=== PATIENT | male | born 2000 | race Caucasian/White ===

== ENCOUNTER 2021-11-30 22:28 | Inpatient (IN) | payer BC ==
[2021-11-30 22:48] LABS: Glucose,Whole Blood 293 mg/dL (70-110)
[2021-12-01] MEDS ORDERED: ONDANSETRON 4 MG/2 ML VIAL ONE (00:55)
[2021-12-01 01:58] LABS: ALT 23 U/L (4-49); AST 28 U/L (17-59); African American GFR (CKD) >90 (>60 ml/min/1.73 sqM); Albumin 4.5 g/dL (3.5-5.0); Alkaline Phosphatase 124 U/L (38-126); Amylase 33 U/L (30-110); Anion Gap 20 mmol/L; Blood Urea Nitrogen 14 mg/dL (9-20); Calcium 9.5 mg/dL (8.4-10.2); Carbon Dioxide 14 mmol/L (22-30); Chloride 98 mmol/L (98-107); Glucose 315 mg/dL (74-99); Lipase 25 U/L (23-300); Non-African American GFR(CKD) >90 (>60 ml/min/1.73 sqM); Potassium 4.2 mmol/L (3.5-5.1); Sodium 132 mmol/L (137-145); Total Bilirubin 0.7 mg/dL (0.2-1.3); Total Protein 7.5 g/dL (6.3-8.2)
[2021-12-01 02:12] LABS: Glucose,Whole Blood 238 mg/dL (70-110)
[2021-12-01] MEDS ORDERED: NALOXONE 0.4 MG/ML 1 ML VIAL IV PRN (02:45)
[2021-12-01] MEDS ORDERED: DEXTROSE 50% SYRINGE 50 ML IVP PRN ×2 (02:51)
[2021-12-01 02:57] LABS: Appearance,Urine Clear (Clear); Bilirubin,Urine Negative (Negative); Blood,Urine Negative (Negative); Color,Urine Yellow; Glucose,Urine (UA) 4+ (Negative); Leukocyte Esterase,Urine Negative (Negative); Mucus,Urine Rare /hpf; Nitrite,Urine Negative (Negative); Protein,Urine 1+ (Negative); RBC,Urine 1 /hpf (0-5); Specific Gravity,Urine 1.027 (1.001-1.035); Urobilinogen,Urine <2.0 mg/dL (<2.0); WBC,Urine 1 /hpf (0-5)
[2021-12-01 02:59] LABS: Ketones,Urine 4+ (Negative)
[2021-12-01 03:00] LABS: Basophils # (A) 0.1 k/uL (0-0.2); Basophils % (A) 1 %; Eosinophils % (A) 0 %; HCT 46.1 % (39.0-53.0); HGB 15.7 gm/dL (13.0-17.5); Lymphocytes # (A) 0.5 k/uL (1.0-4.8); Lymphocytes % (A) 8 %; MCHC 34.2 g/dL (31.0-37.0); MCV 87.8 fL (80.0-100.0); Mean Platelet Volume 7.9; Monocytes # (A) 0.5 k/uL (0-1.0); Monocytes % (A) 8 %; Neutrophils # (A) 5.3 k/uL (1.3-7.7); Neutrophils % (A) 81 %; Platelet Count 245 k/uL (150-450); RBC 5.25 m/uL (4.30-5.90); WBC 6.6 k/uL (4.0-11.0)
[2021-12-01] MEDS: SODIUM CHLORIDE 0.9% 1,000 ML IV SCH ×4 (03:07→20:18)
[2021-12-01 03:13] LABS: VBG PH 7.5 (7.31-7.41)
[2021-12-01 03:13] LABS: Glucose,Whole Blood 204 mg/dL (70-110)
[2021-12-01] MEDS: INSULIN ASPART (NovoLOG) 100 UNIT/ML VIAL SQ SCH ×5 (03:23→20:18)
--- NOTE | 2021-12-01 03:27 | P.HPIM ---
History of Present Illness H&P Date: 12/01/21 The patient is a 20-year-old male with a PMH of type I DM on insulin pump who presents to the emergency room with complaints of nausea, vomiting, abdominal pain. The patient reports that his symptoms started earlier today, likely as a result of his insulin pump battery running out. The patient reports that he noticed the battery had run out after arrival at the emergency room, and that he had simply forgotten to charge it. Reports that this has happened in the past but that his symptoms were never severe. Reports feeling better at the time of interview. Reports mild diffuse abdominal pain with multiple episodes of nonbloody nonbilious emesis over the past 4-5 hours. Denies recent chest discomfort, shortness of breath, fever, chills, cough. Laboratory evaluation was remarkable for CO2 14, anion gap 20, and glucose 315. Review of systems: Pertinent positives and negatives as discussed in HPI, a complete review of systems was performed and all other systems are negative. Physical examination: General: non toxic, no distress, appears at stated age, normal weight Derm: no unusual rashes/lesions, warm Head: atraumatic, normocephalic, symmetric Eyes: EOMI, no lid lag, anicteric sclera, pupils equal round reactive to light ENT: Nose and ears atraumatic Neck: No cervical lymphadenopathy, trachea midline, supple Mouth: no lip lesion, mucus membranes dry Cardiovascular: S1S2 reg, no murmur, positive dorsalis pedis pulse bilateral, no edema Lungs: CTA bilateral, no rhonchi, no rales, no accessory muscle use Abdominal: soft, nontender to palpation, no guarding Ext: muscle strength 5 out of 5 in all 4 extremities grossly, no gross muscle atrophy, no contractures, Neuro: CN II-XI grossly intact, no gross focal neuro deficits Psych: Alert, oriented, appropriate affect Assessment/plan Mild Diabetic ketoacidosis -Patient responded very well to subcu insulin with blood glucose 204 at time of interview -Patient reports that his basal insulin rate is 3 units an hour -Continue with subcu insulin and IV fluids -Discontinue patient's insulin pump at this time -Monitor BMP every 2 hourly -Nothing by mouth for now DVT prophylaxis -Heparin subq The patient is admitted with an anticipated greater than 2 midnight stay for evaluation of DKA CODE STATUS: Full Code Discussed with: Patient Anticipated discharge place: Home Past Medical History Past Medical History: No Reported History, Diabetes Mellitus History of Any Multi-Drug Resistant Organisms: None Reported Past Surgical History: No Surgical Hx Reported Past Psychological History: No Psychological Hx Reported Smoking Status: Never smoker Past Alcohol Use History: None Reported Past Drug Use History: None Reported - Past Family History Mother Family Medical History: Cancer Medications and Allergies Allergies Allergy/AdvReac Type Severity Reaction Status Date / Time latex Allergy Rash/Hives Verified 11/30/21 22:40 Physical Exam Vitals: Vital Signs Temp Pulse Resp BP Pulse Ox 11/30/21 22:41 98.8 F 120 H 22 111/66 98 Intake and Output 11/30/21 11/30/21 12/01/21 14:59 22:59 06:59 Other: Weight 93.894 kg Results CBC & Chem 7: 12/01/21 00:33 11/30/21 23:51 Labs: Abnormal Lab Results - Last 24 Hours (Table) 11/30/21 11/30/21 12/01/21 Range/Units 22:46 23:51 00:33 Lymphocytes # 0.5 L (1.0-4.8) k/uL VBG pH (7.31-7.41) VBG pCO2 (37-51) mmHg VBG HCO3 (24-28) mmol/L Sodium 132 L (137-145) mmol/L Carbon Dioxide 14 L (22-30) mmol/L Glucose 315 H (74-99) mg/dL POC Glucose (mg/dL) 293 H (70-110) mg/dL Urine Protein (Negative) Urine Glucose (UA) (Negative) Urine Ketones (Negative) Urine Mucus (None) /hpf 12/01/21 12/01/21 12/01/21 Range/Units 00:33 00:33 02:10 Lymphocytes # (1.0-4.8) k/uL VBG pH 7.50 H (7.31-7.41) VBG pCO2 27 L (37-51) mmHg VBG HCO3 21 L (24-28) mmol/L Sodium (137-145) mmol/L Carbon Dioxide (22-30) mmol/L Glucose (74-99) mg/dL POC Glucose (mg/dL) 238 H (70-110) mg/dL Urine Protein 1+ H (Negative) Urine Glucose (UA) 4+ H (Negative) Urine Ketones 4+ H (Negative) Urine Mucus Rare H (None) /hpf 12/01/21 Range/Units 03:11 Lymphocytes # (1.0-4.8) k/uL VBG pH (7.31-7.41) VBG pCO2 (37-51) mmHg VBG HCO3 (24-28) mmol/L Sodium (137-145) mmol/L Carbon Dioxide (22-30) mmol/L Glucose (74-99) mg/dL POC Glucose (mg/dL) 204 H (70-110) mg/dL Urine Protein (Negative) Urine Glucose (UA) (Negative) Urine Ketones (Negative) Urine Mucus (None) /hpf
[2021-12-01] MEDS ORDERED: INSULIN DETEMIR (LEVEMIR) 100 UNIT/ML SYR SQ SCH (03:30)
[2021-12-01 03:57] LABS: Phosphorus 1.6 mg/dL (2.5-4.5)
--- NOTE | 2021-12-01 05:01 | XR ---
EXAM: XR Chest, 1 View CLINICAL HISTORY: cough TECHNIQUE: Frontal view of the chest. COMPARISON: No relevant prior studies available. FINDINGS: Lungs: No consolidation or mass. Pleural space: No acute findings Heart: No cardiomegaly. Bones/joints: No acute findings. IMPRESSION: No acute cardiopulmonary process.
[2021-12-01 05:18] LABS: Glucose,Whole Blood 236 mg/dL (70-110)
[2021-12-01 05:37] LABS: African American GFR (CKD) >90 (>60 ml/min/1.73 sqM); Anion Gap 14 mmol/L; Blood Urea Nitrogen 13 mg/dL (9-20); Calcium 8.2 mg/dL (8.4-10.2); Carbon Dioxide 17 mmol/L (22-30); Chloride 100 mmol/L (98-107); Glucose 217 mg/dL (74-99); Non-African American GFR(CKD) >90 (>60 ml/min/1.73 sqM); Sodium 131 mmol/L (137-145)
[2021-12-01] MEDS: ACETAMINOPHEN TAB 325 MG TAB PO PRN ×3 (06:24→21:59)
[2021-12-01] MEDS: ONDANSETRON 4 MG/2 ML VIAL IVP PRN ×3 (06:26→22:11)
[2021-12-01 07:00] LABS: Glucose,Whole Blood 281 mg/dL (70-110)
[2021-12-01] MEDS: HEPARIN SODIUM,PORCINE/PF 5,000 UNIT/0.5 ML SYRINGE SQ SCH ×3 (08:59→23:08)
[2021-12-01 09:08] LABS: Glucose,Whole Blood 350 mg/dL (70-110)
[2021-12-01 14:06] LABS: Glucose,Whole Blood 297 mg/dL (70-110)
--- NOTE | 2021-12-01 16:36 | P.EN ---
Patient seen and examined. Agree with history and physical assessment and plan. Patient is a 20-year-old male with past medical history of type 1 diabetes mellitus on insulin pump which malfunctioned. He presented to the hospital with DKA. Currently on evaluation patient states improvement of overall symptoms of nausea vomiting and abdominal pain. He is currently on subcutaneous insulin. -Patient's CO2 did improve from 14-17. Stat BMP has been ordered to monitor closure anion gap. Continue with IV fluids Continue with current insulin and titrate accordingly
[2021-12-01 16:51] LABS: Glucose,Whole Blood 255 mg/dL (70-110)
[2021-12-01 17:16] LABS: African American GFR (CKD) >90 (>60 ml/min/1.73 sqM); Anion Gap 12 mmol/L; Blood Urea Nitrogen 13 mg/dL (9-20); Calcium 8.1 mg/dL (8.4-10.2); Carbon Dioxide 21 mmol/L (22-30); Chloride 98 mmol/L (98-107); Glucose 262 mg/dL (74-99); Magnesium 1.9 mg/dL (1.6-2.3); Non-African American GFR(CKD) >90 (>60 ml/min/1.73 sqM); Potassium 3.9 mmol/L (3.5-5.1); Sodium 131 mmol/L (137-145)
[2021-12-01 19:52] LABS: Glucose,Whole Blood 281 mg/dL (70-110)
[2021-12-01] MEDS: INSULIN DETEMIR (LEVEMIR) 100 UNIT/ML SYR SQ SCH (20:17)
[2021-12-02 02:07] LABS: Glucose,Whole Blood 254 mg/dL (70-110)
[2021-12-02] MEDS: INSULIN ASPART (NovoLOG) 100 UNIT/ML VIAL SQ SCH ×7 (02:08→20:44)
[2021-12-02 05:32] LABS: Magnesium 1.9 mg/dL (1.6-2.3)
[2021-12-02] MEDS: SODIUM CHLORIDE 0.9% 1,000 ML IV SCH (05:48)
[2021-12-02] MEDS: ONDANSETRON 4 MG/2 ML VIAL IVP PRN (05:49)
[2021-12-02 06:28] LABS: Glucose,Whole Blood 215 mg/dL (70-110)
[2021-12-02] MEDS: ACETAMINOPHEN TAB 325 MG TAB PO PRN ×3 (06:40→19:28)
[2021-12-02] MEDS: HEPARIN SODIUM,PORCINE/PF 5,000 UNIT/0.5 ML SYRINGE SQ SCH ×3 (08:47→23:46)
[2021-12-02 09:19] LABS: Glucose,Whole Blood 273 mg/dL (70-110)
[2021-12-02] MEDS ORDERED: INSULIN ASPART (NovoLOG) 100 UNIT/ML VIAL SQ PRN (11:07)
[2021-12-02] MEDS ORDERED: INSPUCOR MISCELLANE PRN (11:07)
[2021-12-02 11:53] LABS: Glucose,Whole Blood 189 mg/dL (70-110)
[2021-12-02] MEDS ORDERED: IOPAMIDOL CONTRAST (ORAL USE) VIAL PO PRN (15:52)
--- NOTE | 2021-12-02 15:57 | P.PN ---
Progress Note - Text Progress Note Date: 12/02/21 Hospital course: The patient is a 20-year-old male with a PMH of type I DM on insulin pump who p resents to the emergency room with complaints of nausea, vomiting, abdominal pain. The patient reports that his symptoms started earlier today, likely as a result of his insulin pump battery running out. The patient reports that he noticed the battery had run out after arrival at the emergency room, and that he had simply forgotten to charge it. Reports that this has happened in the past but that his symptoms were never severe. Reports feeling better at the time of interview. Reports mild diffuse abdominal pain with multiple episodes of nonbloody nonbilious emesis over the past 4-5 hours. Denies recent chest discomfort, shortness of breath, fever, chills, cough. Laboratory evaluation was remarkable for CO2 14, anion gap 20, and glucose 315. December 02: I assumed care of the patient from [facility] today. Patient is feeling better. Had spiked a fever. Had a slight cough. Come in. Feeling better. No congestion. No respiratory symptoms. No urinary symptoms. Patient's comfort also came in and patient be started on insulin pump. Patient smoked mother is also present. Patient was diagnosed to be diabetic at age of 3 and has adequate insulin pump last 8 years. Normally his Accu-Cheks runs in about 200s. 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 I discussed at length with patient his mother and his girlfriend diabetic care and diet. We have no diabetic liaison in the hospital. Mother is a rather discontent about improper diabetic food being provided the hospital. Dietitian was consulted for the same. Infection workup has been ordered including checks to x-ray urine culture, blood culture. Active Medications Acetaminophen (Acetaminophen Tab 325 Mg Tab) 650 mg PO Q6HR PRN PRN Reason: Mild Pain or Fever > 100.5 Last Admin: 12/02/21 13:46 Dose: 650 mg Dextrose/Water (Dextrose 50% Syringe 50 Ml) 25 ml IVP PER PROTOCOL PRN; Protocol PRN Reason: Hypoglycemia Dextrose/Water (Dextrose 50% Syringe 50 Ml) 50 ml IVP PER PROTOCOL PRN; Protocol PRN Reason: Hypoglycemia Heparin Sodium (Porcine) (Heparin Sodium,Porcine/Pf 5,000 Unit/0.5 Ml Syringe) 5,000 unit SQ Q8HR MANUEL Last Admin: 12/02/21 08:47 Dose: Not Given Insulin Aspart (Insulin Aspart (Novolog) 100 Unit/Ml Vial) 0 unit SQ Q6H [facility]; Protocol Last Admin: 12/02/21 09:35 Dose: 9 unit Insulin Aspart (Insulin Aspart (Novolog) 100 Unit/Ml Vial) 5 unit SQ AC-TID [facility] Last Admin: 12/02/21 06:40 Dose: 5 unit Insulin Aspart (Insulin Aspart (Novolog) 100 Unit/Ml Vial) 0 unit SQ DAILY PRN PRN Reason: Insulin Pump Replacement Insulin Detemir (Insulin Detemir (Levemir) 100 Unit/Ml Syr) 28 unit SQ HS [facility] Last Admin: 12/01/21 20:17 Dose: 28 unit Miscellaneous Information (Insulin Pump Correction Bolus 1 Unit Misc) 0 unit MISCELLANE ACHS PRN; Protocol PRN Reason: Blood Sugar - High Naloxone HCl (Naloxone 0.4 Mg/Ml 1 Ml Vial) 0.2 mg IV Q2M PRN PRN Reason: Opioid Reversal Ondansetron HCl (Ondansetron 4 Mg/2 Ml Vial) 4 mg IVP Q8HR PRN PRN Reason: Nausea And Vomiting Last Admin: 12/02/21 05:49 Dose: 4 mg On examination: VITAL SIGNS: [102.3, 107, 17, 133/72, 99% room air] GENERAL APPEARANCE: Average build. Lying in bed, not in distress. HEENT: Normal external appearance of nose and ear. Oral cavity normal EYES: Pupils equal. Conjunctiva normal. NECK: JVD not raised. Mass not palpable. RESPIRATORY: Respiratory effort normal. Lungs clear to auscultation. CARDIOVASCULAR: First and second sounds normal. No edema. ABDOMEN: Soft. Liver and spleen not palpable. No tenderness. No mass palpable. PSYCHIATRY: Alert and oriented x3. Mood and affect normal. INVESTIGATIONS, reviewed in the clinical context: Assessment and plan: -Sepsis, source unknown. IV fluids. Hold antibiotics. No source of infection on. Chest x-ray PA lateral. Urine culture. Blood culture. Computed tomography scan abdomen and pelvis with and without contrast. -Mild Diabetic ketoacidosis: Improved Patient was being managed with long-acting insulin and short-acting insulin. We'll start the patient back on insulin pump. Diabetic care was discussed at length with the patient, his mother, his girlfriend. Questions answered. Patient be started back on insulin pump. Labs have been requested. Infection workup in place. Total spent about 45 minutes with over 30 minutes of discussion. Dietitian and ID consult. -
[2021-12-02 16:14] LABS: Glucose,Whole Blood 208 mg/dL (70-110)
[2021-12-02 16:31] LABS: HCT 41.6 % (39.0-53.0); MCH 29.5 pg (25.0-35.0); MCHC 33.6 g/dL (31.0-37.0); MCV 87.7 fL (80.0-100.0); Mean Platelet Volume 7.8; Platelet Count 146 k/uL (150-450); RBC 4.74 m/uL (4.30-5.90); WBC 4.1 k/uL (4.0-11.0)
[2021-12-02 16:42] LABS: ALT 23 U/L (4-49); AST 37 U/L (17-59); African American GFR (CKD) >90 (>60 ml/min/1.73 sqM); Albumin 3.7 g/dL (3.5-5.0); Alkaline Phosphatase 88 U/L (38-126); Anion Gap 13 mmol/L; Blood Urea Nitrogen 9 mg/dL (9-20); Calcium 8.2 mg/dL (8.4-10.2); Carbon Dioxide 20 mmol/L (22-30); Chloride 101 mmol/L (98-107); Glucose 213 mg/dL (74-99); Non-African American GFR(CKD) >90 (>60 ml/min/1.73 sqM); Potassium 3.9 mmol/L (3.5-5.1); Sodium 134 mmol/L (137-145); Total Bilirubin 0.9 mg/dL (0.2-1.3); Total Protein 6.4 g/dL (6.3-8.2)
[2021-12-02 16:46] LABS: Appearance,Urine Clear (Clear); Bilirubin,Urine Negative (Negative); Blood,Urine Negative (Negative); Color,Urine Light Yellow; Glucose,Urine (UA) 4+ (Negative); Ketones,Urine 1+ (Negative); Leukocyte Esterase,Urine Negative (Negative); Nitrite,Urine Negative (Negative); Protein,Urine Trace (Negative); Specific Gravity,Urine 1.012 (1.001-1.035); Urobilinogen,Urine <2.0 mg/dL (<2.0)
--- NOTE | 2021-12-02 17:16 | XR ---
EXAMINATION TYPE: XR chest 2V DATE OF EXAM: 12/02/2021 COMPARISON: 12/01/2021 HISTORY: Productive cough TECHNIQUE: Frontal and lateral views of the chest are obtained. FINDINGS: There is no focal air space opacity, pleural effusion, or pneumothorax seen. The cardiac silhouette size is within normal limits. The osseous structures are intact. IMPRESSION: No acute cardiopulmonary process.
--- NOTE | 2021-12-02 20:30 | CT ---
EXAMINATION TYPE: CT abdomen wo/w con DATE OF EXAM: 12/02/2021 COMPARISON: 02/27/2012 HISTORY: abdominal pain, fever CT DLP: 1341.2 mGycm Automated exposure control for dose reduction was used. TECHNIQUE: Helical acquisition of images was performed from the lung bases through the top of iliac crest to include entire abdomen. CONTRAST: Performed with Oral Contrast and without and with IV Contrast, patient injected with 100 mL of Isovue 370. FINDINGS: LUNG BASES: No significant abnormality is appreciated. LIVER/GB: No significant abnormality is appreciated. PANCREAS: No significant abnormality is seen. SPLEEN: No significant abnormality is seen. ADRENALS: No significant abnormality is seen. KIDNEYS: No significant abnormality is seen. BOWEL: No significant abnormality is seen. LYMPH NODES: Multiple mildly prominent lymph nodes in the abdominal right lower quadrant. OSSEOUS STRUCTURES: No significant abnormality is seen. FREE AIR: No free air is visualized. OTHER: None IMPRESSION: NONSPECIFIC MILDLY PROMINENT RIGHT LOWER QUADRANT LYMPH NODES, MAY REPRESENT MESENTERIC LYMPHADENITIS IN THE APPROPRIATE CLINICAL SETTING. Otherwise unremarkable study.
[2021-12-02 20:32] LABS: Glucose,Whole Blood 145 mg/dL (70-110)
[2021-12-02] MEDS: INSULIN DETEMIR (LEVEMIR) 100 UNIT/ML SYR SQ SCH (20:44)
[2021-12-02] MEDS: LOPERAMIDE 2 MG CAP PO PRN (23:57)
[2021-12-03] MEDS: INSULIN ASPART (NovoLOG) 100 UNIT/ML VIAL SQ SCH ×5 (02:21→20:20)
[2021-12-03 02:23] LABS: Glucose,Whole Blood 127 mg/dL (70-110)
[2021-12-03] MEDS: ACETAMINOPHEN TAB 325 MG TAB PO PRN ×3 (03:40→15:08)
[2021-12-03 06:16] LABS: Glucose,Whole Blood 137 mg/dL (70-110)
[2021-12-03 07:52] LABS: EBV-EA (IgG) <0.2 AI; EBV-EBNA(IgG) 0.6 AI; EBV-VCA (IgG) 0.6 AI; EBV-VCA (IgM) <0.2 AI
[2021-12-03] MEDS: HEPARIN SODIUM,PORCINE/PF 5,000 UNIT/0.5 ML SYRINGE SQ SCH ×3 (09:10→23:43)
--- NOTE | 2021-12-03 10:08 | P.CRDCN ---
History of Present Illness History of present illness: HISTORY OF PRESENTING ILLNESS This is a pleasant 20-year-old male past medical history significant for type 1 diabetes with insulin pump, hypothyroidism. She does not follow with a certified prosthetist/orthotist. We have been asked to see in consultation for EKG changes. Patient presents emergency department on 12/01/2021 with complaints of nausea, vomiting, abdominal pain. Patient states his insulin pump battery ran out, he forgot to charge it. He states this has happened in the past but he had more severe symptoms this time. He denies any chest pain, shortness of breath, palpitations, cough, fever, chills at home. He is currently feeling better however having fevers. He denies any respiratory symptoms. 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 No other cardiac history. DIAGNOSTICS * EKGs reveal sinus tachycardia, heart rate 102, nonspecific T-wave inversions in leads III and aVF. No prior EKG to compare. No acute ischemic changes. No acute abnormalities noted. Repeat EKGs are similar. * Telemetry tracings indicate sinus rhythm, heart rate [id number] * Laboratory reviewed, sodium 134, potassium 3.9, BUN 9, serum current 0.7, magnesium 1.9 * Current home cardiac medications include none REVIEW OF SYSTEMS CONSTITUTIONAL: Denies fever or chills. CARDIOVASCULAR: Denies chest pain, shortness of breath, orthopnea, PND or palpitations. RESPIRATORY: Denies cough. GASTROINTESTINAL: + abdominal pain,Denies diarrhea, Denies constipation, +nausea +vomiting. MUSCULOSKELETAL: Denies myalgias. NEUROLOGIC: Denies numbness, tingling, headacbe or weakness. ENDOCRINE: Denies fatigue, weight change, polydipsia or polyurina. GENITOURINARY: Denies burning, hematuria or urgency with micturation. HEMATOLOGIC: Denies history of anemia or bleeding. PHYSICAL EXAMINATION Blood pressure 124/73, 96, temp 101.5, 99% on room air CONSTITUTIONAL: No apparent distress. HEENT: Head is normocephalic. Pupils are equal, round. Sclerae anicteric. Mucous membranes of the mouth are moist. No JVD. No carotid bruit. CHEST EXAMINATION: Lungs are clear to auscultation. No chest wall tenderness is noted on palpation or with deep breathing. HEART EXAMINATION: Regular rate and rhythm. S1, S2 heard. No murmurs, gallops or rub. ABDOMEN: Soft, nontender. Positive bowel sounds. EXTREMITIES: 2+ peripheral pulses, no lower extremity edema and no calf tenderness. NEUROLOGIC EXAMINATION: Patient is awake, alert and oriented x3. ASSESSMENT Abdominal pain, nausea vomiting Fevers Type 1 Diabetes Hypothyroidism PLAN EKG and telemetry with no acute abnormalities. Non-specific T wave inversion in inferior leads No further work up from a cardiology perspective. Please re-consult if needed. Nurse practitioner note has been reviewed by physician. Signing provider agrees with the documented findings, assessment, and plan of care. Past Medical History Past Medical History: Diabetes Mellitus, Thyroid Disorder Additional Past Medical History / Comment(s): IDDM type I/insulin pump, hypothyroid History of Any Multi-Drug Resistant Organisms: None Reported Past Surgical History: No Surgical Hx Reported Past Anesthesia/Blood Transfusion Reactions: Unable to Obtain Additional Past Anesthesia/Blood Transfusion Reaction / Comment(s): Pt has never had anesthesia Smoking Status: Never smoker - Past Family History Mother History Unknown: Yes Family Medical History: Cancer Additional Family Medical History / Comment(s): Pt is adopted Father History Unknown: Yes Additional Family Medical History / Comment(s): Pt is adopted. Medications and Allergies Home Medications Medication Instructions Recorded Confirmed Type Fenofibrate [Lofibra] 54 mg PO W/LUNCH 12/01/21 12/01/21 History Glucagon [Baqsimi] 1 dose NASAL DIRECTED PRN 12/01/21 12/01/21 History Levothyroxine Sodium 100 mcg PO DAILY 12/01/21 12/01/21 History RX: Insulin Aspart [NovoLOG See Protocol SQ CONTINUOUS 12/01/21 12/01/21 History Flexpen] Allergies Allergy/AdvReac Type Severity Reaction Status Date / Time latex Allergy Rash/Hives Verified 12/01/21 07:18 Physical Exam Vitals: Vital Signs Temp Pulse Pulse Resp BP Pulse Ox 12/03/21 05:54 99 F 12/03/21 04:00 100.3 F H 102 H 18 119/52 97 12/03/21 02:00 87 18 12/03/21 00:00 99.4 F 87 18 147/66 99 12/02/21 20:00 99 F 102 H 18 127/62 98 12/02/21 16:34 99.9 F H 94 17 132/63 100 12/02/21 15:33 99.2 F 12/02/21 14:00 107 H 17 12/02/21 13:45 102.3 F H 12/02/21 12:00 98.5 F 107 H 17 133/72 99 12/02/21 08:00 99.6 F 100 107 H 17 109/64 97 Intake and Output 12/02/21 12/03/21 12/03/21 22:59 06:59 14:59 Intake Total 1200 Balance 1200 Intake: Oral 1200 Other: Voiding Method Toilet Toilet # Voids 1 # Bowel Movements 2 2 Results 12/03/21 11:44 12/03/21 11:44 Cardiac Enzymes 12/02/21 Range/Units 15:46 AST 37 (17-59) U/L CBC 12/02/21 Range/Units 15:46 WBC 4.1 (4.0-11.0) k/uL RBC 4.74 (4.30-5.90) m/uL Hgb 14.0 (13.0-17.5) gm/dL Hct 41.6 (39.0-53.0) % Plt Count 146 L (150-450) k/uL Comprehensive Metabolic Panel 12/02/21 Range/Units 15:46 Sodium 134 L (137-145) mmol/L Potassium 3.9 (3.5-5.1) mmol/L Chloride 101 (98-107) mmol/L Carbon Dioxide 20 L (22-30) mmol/L BUN 9 (9-20) mg/dL Creatinine 0.72 (0.66-1.25) mg/dL Glucose 213 H (74-99) mg/dL Calcium 8.2 L (8.4-10.2) mg/dL AST 37 (17-59) U/L ALT 23 (4-49) U/L Alkaline Phosphatase 88 (38-126) U/L Total Protein 6.4 (6.3-8.2) g/dL Albumin 3.7 (3.5-5.0) g/dL Current Medications Generic Name Dose Route Start Last Admin Trade Name Freq PRN Reason Stop Dose Admin Acetaminophen 650 mg 12/01/21 02:45 12/03/21 03:40 Acetaminophen Tab 325 Mg Tab PO 650 mg Q6HR PRN Administration Mild Pain or Fever > 100.5 Dextrose/Water 25 ml 12/01/21 02:51 Dextrose 50% Syringe 50 Ml IVP PER PROTOCOL PRN Hypoglycemia Protocol Dextrose/Water 50 ml 12/01/21 02:51 Dextrose 50% Syringe 50 Ml IVP PER PROTOCOL PRN Hypoglycemia Protocol Heparin Sodium (Porcine) 5,000 unit 12/01/21 08:00 12/02/21 23:46 Heparin Sodium,Porcine/Pf 5,000 Unit/0.5 Ml Syringe SQ Not Given Q8HR [facility]UEL Insulin Aspart 0 unit 12/01/21 03:00 12/03/21 02:21 Insulin Aspart (Novolog) 100 Unit/Ml Vial SQ Not Given Q6H [facility] Protocol Insulin Aspart 5 unit 12/01/21 17:30 12/03/21 06:17 Insulin Aspart (Novolog) 100 Unit/Ml Vial SQ Not Given AC-TID [facility] Insulin Aspart 0 unit 12/02/21 11:07 Insulin Aspart (Novolog) 100 Unit/Ml Vial SQ DAILY PRN Insulin Pump Replacement Insulin Detemir 28 unit 12/01/21 21:00 12/02/21 20:44 Insulin Detemir (Levemir) 100 Unit/Ml Syr SQ Not Given HS [facility] Loperamide HCl 2 mg 12/02/21 23:37 12/02/21 23:57 Loperamide 2 Mg Cap PO 2 mg QID PRN Administration Diarrhea Miscellaneous Information 0 unit 12/02/21 11:07 Insulin Pump Correction Bolus 1 Unit Misc MISCELLANE ACHS PRN Blood Sugar - High Protocol Naloxone HCl 0.2 mg 12/01/21 02:45 Naloxone 0.4 Mg/Ml 1 Ml Vial IV Q2M PRN Opioid Reversal Ondansetron HCl 4 mg 12/01/21 02:45 12/02/21 05:49 Ondansetron 4 Mg/2 Ml Vial IVP 4 mg Q8HR PRN Administration Nausea And Vomiting Intake and Output 12/02/21 12/03/21 12/03/21 22:59 06:59 14:59 Intake Total 1200 Balance 1200 Intake: Oral 1200 Other: Voiding Method Toilet Toilet # Voids 1 # Bowel Movements 2 2 12/02/21 15:46 12/02/21 15:46
[2021-12-03] MEDS: LOPERAMIDE 2 MG CAP PO PRN (11:02)
[2021-12-03 12:24] LABS: ALT 24 U/L (4-49); AST 39 U/L (17-59); African American GFR (CKD) >90 (>60 ml/min/1.73 sqM); Albumin 3.4 g/dL (3.5-5.0); Alkaline Phosphatase 76 U/L (38-126); Anion Gap 8 mmol/L; Blood Urea Nitrogen 7 mg/dL (9-20); Calcium 7.7 mg/dL (8.4-10.2); Carbon Dioxide 24 mmol/L (22-30); Chloride 102 mmol/L (98-107); Glucose 202 mg/dL (74-99); Non-African American GFR(CKD) >90 (>60 ml/min/1.73 sqM); Potassium 3.9 mmol/L (3.5-5.1); Sodium 134 mmol/L (137-145); Total Bilirubin 0.8 mg/dL (0.2-1.3)
[2021-12-03] MEDS: CIPROFLOXACIN HCL 500 MG TAB PO SCH ×2 (12:29→21:08)
[2021-12-03] MEDS: metroNIDAZOLE 500 MG TAB PO SCH ×3 (12:29→21:08)
[2021-12-03] MEDS: AMPICILLIN-SULBACTAM 3 GM in SODIUM CHLORIDE 0.9% 100 ML IVPB SCH ×3 (12:29→23:43)
[2021-12-03 12:33] LABS: HCT 41.6 % (39.0-53.0); HGB 13.5 gm/dL (13.0-17.5); MCH 28.8 pg (25.0-35.0); MCHC 32.5 g/dL (31.0-37.0); MCV 88.6 fL (80.0-100.0); Platelet Count 147 k/uL (150-450); RBC 4.69 m/uL (4.30-5.90); RDW 13.1 % (11.5-15.5); WBC 4.2 k/uL (4.0-11.0)
[2021-12-03 12:43] VITALS: BMI 29.7
[2021-12-03 13:20] LABS: Band Neutrophils % 7 %; Lymphocytes # (M) 1.01 k/uL (1.0-4.8); Monocytes # (M) 0.38 k/uL (0-1.0); Neutrophils % (M) 60 %; Nucleated Red Blood Cells 0 /100 WBC (0-0); Total Cells Counted 100
[2021-12-03 13:23] LABS: Anisocytosis (M) Present
[2021-12-03] MEDS ORDERED: PROCHLORPERAZINE INJ 10 MG/2 ML VIAL IVP PRN (15:12)
[2021-12-03] MEDS ORDERED: NAPROXEN 250 MG TAB PO PRN (15:13)
--- NOTE | 2021-12-03 17:16 | CA ---
Transthoracic Echo Report Name: Edgar Cnaas Age: 20 Gender: M : 2000 Exam Date: 12/03/2021 08:48 Exam Location: [facility] Ht (in): 70 Wt (lb): 207 Ordering Physician: Hong Junior MD Attending/Referring Phys: Storm Window Installer Jennifer Call RDCS Procedure CPT: Indications: ST elevation, depression t inversion Cardiac Hx: Technical Quality: Fair Contrast 1: Total Dose (mL): Contrast 2: Total Dose (mL): MEASUREMENTS (Male / Female) Normal Values 2D ECHO LV Diastolic Diameter PLAX 3.6 cm 4.2 - 5.9 / 3.9 - 5.3 cm LV Systolic Diameter PLAX 1.7 cm IVS Diastolic Thickness 1.7 cm 0.6 - 1.0 / 0.6 - 0.9 cm LVPW Diastolic Thickness 1.5 cm 0.6 - 1.0 / 0.6 - 0.9 cm LV Relative Wall Thickness 0.9 RV Internal Dim ED PLAX 3.0 cm LA Volume 41.7 cm??? 18 - 58 / 22 - 52 cm??? M-MODE Aortic Root Diameter MM 2.9 cm LA Systolic Diameter MM 3.7 cm LA Ao Ratio MM 1.3 AV Cusp Separation MM 1.6 cm DOPPLER AV Peak Velocity 160.5 cm/s AV Peak Gradient 10.3 mmHg LVOT Peak Velocity 145.1 cm/s LVOT Peak Gradient 8.4 mmHg MV Area PHT 2.9 cm??? Mitral E Point Velocity 90.3 cm/s Mitral A Point Velocity 50.2 cm/s Mitral E to A Ratio 1.8 MV Deceleration Time 261.4 ms MV E' Velocity 8.4 cm/s Mitral E to MV E' Ratio 10.7 FINDINGS Left Ventricle Moderately increased septal wall thickness. Normal left ventricular systolic function with no obvious regional wall motion abnormalities. Left ventricular ejection fraction is estimated at 55-60 %. Normal left ventricular diastolic filling pattern. Right Ventricle Normal right ventricular size and function. Right ventricular systolic pressure within normal limits. Right Atrium Normal right atrial size. Left Atrium Normal left atrial size. No evidence for an atrial septal defect. Mitral Valve Structurally normal mitral valve. No mitral stenosis, regurgitation or prolapse. Aortic Valve Trileaflet aortic valve. No aortic valve stenosis or regurgitation. Tricuspid Valve Structurally normal tricuspid valve. Mild tricuspid regurgitation. Pulmonic Valve Trace pulmonic regurgitation. Pericardium No pericardial effusion. Aorta Normal size aortic root and proximal ascending aorta. CONCLUSIONS Normal left ventricular EF 55-60% Moderate LVH No mitral regurgitation Mild tricuspid regurgitation Previewed by: Dr. Huy Gama DO (Electronically Signed) Final Date: 03 December 2021 17:15
--- NOTE | 2021-12-03 17:28 | P.PN ---
Progress Note - Text Progress Note Date: 12/03/21 Hospital course: The patient is a 20-year-old male with a PMH of type I DM on insulin pump who p resents to the emergency room with complaints of nausea, vomiting, abdominal pain. The patient reports that his symptoms started earlier today, likely as a result of his insulin pump battery running out. The patient reports that he noticed the battery had run out after arrival at the emergency room, and that he had simply forgotten to charge it. Reports that this has happened in the past but that his symptoms were never severe. Reports feeling better at the time of interview. Reports mild diffuse abdominal pain with multiple episodes of nonbloody nonbilious emesis over the past 4-5 hours. Denies recent chest discomfort, shortness of breath, fever, chills, cough. Laboratory evaluation was remarkable for CO2 14, anion gap 20, and glucose 315. December 02: I assumed care of the patient from [facility] today. Patient is feeling better. Had spiked a fever. Had a slight cough. Come in. Feeling better. No congestion. No respiratory symptoms. No urinary symptoms. Patient's comfort also came in and patient be started on insulin pump. Patient smoked mother is also present. Patient was diagnosed to be diabetic at age of 3 and has adequate insulin pump last 8 years. Normally his Accu-Cheks runs in about 200s. 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 I discussed at length with patient his mother and his girlfriend diabetic care and diet. We have no diabetic liaison in the hospital. Mother is a rather discontent about improper diabetic food being provided the hospital. Dietitian was consulted for the same. Infection workup has been ordered including checks to x-ray urine culture, blood culture. December 03: Patient been having diarrhea. C. diff was negative. No blood. No abdominal pain. Has had a sore throat. Slight redness in the pharynx. Being followed by ID. Discussed length with the patient the mother felt to be viral syndrome. Empirically been put on Cipro and Flagyl if bacterial diarrhea. Abnormal EKG hence cardiology was consulted. No further intervention per them. Diet changed to chopped. Active Medications Acetaminophen (Acetaminophen Tab 325 Mg Tab) 650 mg PO Q6HR PRN PRN Reason: Mild Pain or Fever > 100.5 Last Admin: 12/03/21 15:08 Dose: 650 mg Ciprofloxacin (Ciprofloxacin Hcl 500 Mg Tab) 500 mg PO BID [facility]; Protocol Last Admin: 12/03/21 12:29 Dose: 500 mg Dextrose/Water (Dextrose 50% Syringe 50 Ml) 25 ml IVP PER PROTOCOL PRN; Protocol PRN Reason: Hypoglycemia Dextrose/Water (Dextrose 50% Syringe 50 Ml) 50 ml IVP PER PROTOCOL PRN; Protocol PRN Reason: Hypoglycemia Heparin Sodium (Porcine) (Heparin Sodium,Porcine/Pf 5,000 Unit/0.5 Ml Syringe) 5,000 unit SQ Q8HR [facility] Last Admin: 12/03/21 16:32 Dose: Not Given Ampicillin Sodium/Sulbactam (Sodium 3 gm/ Sodium Chloride) 100 mls @ 200 mls/hr IVPB Q6HR [facility]; Protocol Last Admin: 12/03/21 17:11 Dose: 200 mls/hr Insulin Aspart (Insulin Aspart (Novolog) 100 Unit/Ml Vial) 0 unit SQ Q6H [facility]; Protocol Last Admin: 12/03/21 16:30 Dose: Not Given Insulin Aspart (Insulin Aspart (Novolog) 100 Unit/Ml Vial) 0 unit SQ DAILY PRN PRN Reason: Insulin Pump Replacement Loperamide HCl (Loperamide 2 Mg Cap) 2 mg PO QID PRN PRN Reason: Diarrhea Last Admin: 12/03/21 11:02 Dose: 2 mg Metronidazole (Metronidazole 500 Mg Tab) 500 mg PO QID [facility]; Protocol Last Admin: 12/03/21 17:10 Dose: 500 mg Miscellaneous Information (Insulin Pump Correction Bolus 1 Unit Misc) 0 unit MISCELLANE ACHS PRN; Protocol PRN Reason: Blood Sugar - High Naloxone HCl (Naloxone 0.4 Mg/Ml 1 Ml Vial) 0.2 mg IV Q2M PRN PRN Reason: Opioid Reversal Naproxen (Naproxen 250 Mg Tab) 250 mg PO Q8H PRN PRN Reason: Fever Ondansetron HCl (Ondansetron 4 Mg/2 Ml Vial) 4 mg IVP Q8HR PRN PRN Reason: Nausea And Vomiting Last Admin: 12/02/21 05:49 Dose: 4 mg Prochlorperazine Edisylate (Prochlorperazine Inj 10 Mg/2 Ml Vial) 5 mg IVP Q6HR PRN PRN Reason: Nausea And Vomiting On examination: VITAL SIGNS: 101.7 this morning, 96, 18, 124/73, 99% room air GENERAL APPEARANCE: Sitting up at the window, awake more comfortable HEENT: Normal external appearance of nose and ear. Slight redness in the pharynx EYES: Pupils equal. Conjunctiva normal. NECK: JVD not raised. Mass not palpable. RESPIRATORY: Respiratory effort normal. Lungs clear to auscultation. CARDIOVASCULAR: First and second sounds normal. No edema. ABDOMEN: Soft. Liver and spleen not palpable. No tenderness. No mass palpable. PSYCHIATRY: Alert and oriented x3. Mood and affect normal. INVESTIGATIONS, reviewed in the clinical context: 2-D echocardiogram: Moderately increased septal wall thickness. She felt to 60%. WBC 4.2 hemoglobin 13.5 platelets 147 potassium 3.9 creatinine 0.83 C. diff: Negative UA: Negative for nitrate CMV/EBV: Negative Chest x-ray film: No infiltrates CT abdomen pelvis: Nonspecific mildly prominent lymph nodes in the right lower quadrant. Assessment and plan: -Sepsis, source unknown. Most likely viral. Patient is a slight slowed throat with some clinical findings of pharyngitis. Also has diarrhea.: Slow to respond IV fluids. Hold antibiotics. No source of infection on. Chest x-ray / UA/ Blood culture. Computed tomography scan abdomen and pelvis /all negative. Negative for CMV in EBV. -Acute diarrhea, empirically been treated with Cipro and Flagyl -Mild Diabetic ketoacidosis: Improved Patient was being managed with long-acting insulin and short-acting insulin. We'll start the patient back on insulin pump. Care was discussed at length with the patient and mother at the bedside. Follow with ID. Blood cultures pending. Empirically been put on ciprofloxacin and Flagyl today. Soft diet. -
[2021-12-03] MEDS ORDERED: INSULIN PUMP BASAL RATES 1 EACH MISC MISCELLANE PRN (17:57)
[2021-12-03] MEDS: INSULIN PUMP MEAL BOLUS 1 UNIT MISC MISCELLANE SCH (18:11)
[2021-12-03 20:09] LABS: Glucose,Whole Blood 164 mg/dL (70-110)
--- NOTE | 2021-12-03 22:50 | P.CONS ---
History of Present Illness - Reason for Consult Consult date: 12/03/21 Fever Requesting physician: Hong Junior - Chief Complaint Fever 3 days - History of Present Illness Patient is a 20-year-old male with a past medical history significant for insulin-dependent diabetes mellitus on insulin pump presenting to the hospital 2 days ago for evaluation of acute nausea vomiting and abdominal pain the patient symptoms started the day of presentation to the hospital patient has been complaining of abdominal pain mostly diffuse with multiple loose episodes of nonbloody emesis with the diarrhea started yesterday not on presentation to the hospital patient on arrival to the ER was afebrile however the patient has been running a fever of 103 F since then patient did have a tachycardia however not hypotensive no need for supplemental oxygen patient did have a normal white count kidney function normal liver enzymes are normal amylase and lipase has been normal patient did have a negative UA x2 COVID testing was negative blood cultures obtained which are currently negative patient did have a chest x-ray negative for acute cardiopulmonary process patient did have a CT of abdomen nonspecific mildly prominent right lower quadrant lymph nodes may represent mesenteric lymphadenitis infectious disease was consulted for further management of antibiotic therapy Review of Systems Positive point has been mentioned in the HPI rest of the systems are negative Past Medical History Past Medical History: Diabetes Mellitus, Thyroid Disorder Additional Past Medical History / Comment(s): IDDM type I/insulin pump, hypothyroid History of Any Multi-Drug Resistant Organisms: None Reported Past Surgical History: No Surgical Hx Reported Past Anesthesia/Blood Transfusion Reactions: Unable to Obtain Additional Past Anesthesia/Blood Transfusion Reaction / Comm: Pt has never had anesthesia Smoking Status: Never smoker - Past Family History Mother History Unknown: Yes Family Medical History: Cancer Additional Family Medical History / Comment(s): Pt is adopted Father History Unknown: Yes Additional Family Medical History / Comment(s): Pt is adopted. Medications and Allergies Home Medications Medication Instructions Recorded Confirmed Type Fenofibrate [Lofibra] 54 mg PO W/LUNCH 12/01/21 12/01/21 History Glucagon [Baqsimi] 1 dose NASAL DIRECTED PRN 12/01/21 12/01/21 History Insulin Aspart [NovoLOG Flexpen] See Protocol SQ CONTINUOUS 12/01/21 12/01/21 History Levothyroxine Sodium 100 mcg PO DAILY 12/01/21 12/01/21 History Allergies Allergy/AdvReac Type Severity Reaction Status Date / Time latex Allergy Rash/Hives Verified 12/01/21 07:18 Physical Exam Vitals: Vital Signs Temp Pulse Resp BP Pulse Ox 12/03/21 10:54 96 18 12/03/21 10:07 100.3 F H 12/03/21 09:07 101.5 F H 96 18 124/73 99 12/03/21 05:54 99 F 12/03/21 04:00 100.3 F H 102 H 18 119/52 97 12/03/21 02:00 87 18 12/03/21 00:00 99.4 F 87 18 147/66 99 12/02/21 20:00 99 F 102 H 18 127/62 98 12/02/21 16:34 99.9 F H 94 17 132/63 100 12/02/21 15:33 99.2 F 12/02/21 14:00 107 H 17 12/02/21 13:45 102.3 F H Intake and Output 12/02/21 12/03/21 12/03/21 22:59 06:59 14:59 Intake Total 1200 Balance 1200 Intake: Oral 1200 Other: Voiding Method Toilet Toilet Toilet # Voids 1 # Bowel Movements 2 2 GENERAL DESCRIPTION: Young male lying in bed, no distress. No tachypnea or accessory muscle of respiration use. HEENT: Shows Pallor , no scleral icterus. Oral mucous membrane is dry. No pharyngeal erythema or thrush NECK: Trachea central, no thyromegaly. LUNGS: Unlabored breathing. Clear to auscultation anteriorly. No wheeze or crackle. HEART: S1, S2, regular rate and rhythm. No loud murmur ABDOMEN: Soft, no tenderness , guarding or rigidity, no organomegaly EXTREMITIES: No edema of feet. SKIN: No rash, no masses palpable. NEUROLOGICAL: The patient is awake, alert, oriented x3, mood and affect normal. Results CBC & Chem 7: 12/03/21 11:44 12/03/21 11:44 Labs: Abnormal Lab Results - Last 24 Hours (Table) 12/02/21 12/02/21 12/02/21 Range/Units 15:46 15:46 15:56 Plt Count 146 L (150-450) k/uL Sodium 134 L (137-145) mmol/L Carbon Dioxide 20 L (22-30) mmol/L Glucose 213 H (74-99) mg/dL POC Glucose (mg/dL) (70-110) mg/dL Calcium 8.2 L (8.4-10.2) mg/dL C-Reactive Protein 5.2 H (<1.0) mg/dL Procalcitonin (0.02-0.09) ng/mL Urine Protein (Negative) Urine Glucose (UA) (Negative) Urine Ketones (Negative) 12/02/21 12/02/21 12/02/21 Range/Units 15:56 16:13 16:40 Plt Count (150-450) k/uL Sodium (137-145) mmol/L Carbon Dioxide (22-30) mmol/L Glucose (74-99) mg/dL POC Glucose (mg/dL) 208 H (70-110) mg/dL Calcium (8.4-10.2) mg/dL C-Reactive Protein (<1.0) mg/dL Procalcitonin 0.57 H (0.02-0.09) ng/mL Urine Protein Trace H (Negative) Urine Glucose (UA) 4+ H (Negative) Urine Ketones 1+ H (Negative) 12/02/21 12/03/21 12/03/21 Range/Units 20:31 02:19 06:14 Plt Count (150-450) k/uL Sodium (137-145) mmol/L Carbon Dioxide (22-30) mmol/L Glucose (74-99) mg/dL POC Glucose (mg/dL) 145 H 127 H 137 H (70-110) mg/dL Calcium (8.4-10.2) mg/dL C-Reactive Protein (<1.0) mg/dL Procalcitonin (0.02-0.09) ng/mL Urine Protein (Negative) Urine Glucose (UA) (Negative) Urine Ketones (Negative) Assessment and Plan Plan: 1patient presented to hospital with a fever x3 days and this patient also have some diffuse abdominal pain and vomiting now with evidence of diarrhea and the patient did have a CT suggestive of mesenteric lymphadenopathy likely abdominal source as the patient currently do not have any obvious focus of this fever with a negative UA chest x-ray was reported negative x2 patient did not have any evidence of cellulitis or joint swelling. 2we will empirically start the patient on Unasyn 3 g every 6 hours while waiting for the culture to finalize. 3check stool studies. We will follow on clinical condition and cultures to further adjust medication if needed Thank you for this consultation will follow this patient along with you Time with Patient: Greater than 30
[2021-12-04 00:23] VITALS: RESP 18
[2021-12-04 02:04] LABS: Glucose,Whole Blood 60 mg/dL (70-110)
[2021-12-04 02:21] LABS: Glucose,Whole Blood 57 mg/dL (70-110)
[2021-12-04] MEDS: INSULIN ASPART (NovoLOG) 100 UNIT/ML VIAL SQ SCH ×4 (02:24→20:41)
[2021-12-04 02:40] LABS: Glucose,Whole Blood 69 mg/dL (70-110)
[2021-12-04 03:00] LABS: Glucose,Whole Blood 117 mg/dL (70-110)
[2021-12-04 06:06] LABS: Glucose,Whole Blood 274 mg/dL (70-110)
[2021-12-04] MEDS: AMPICILLIN-SULBACTAM 3 GM in SODIUM CHLORIDE 0.9% 100 ML IVPB SCH ×4 (06:07→23:49)
[2021-12-04] MEDS: INSULIN PUMP MEAL BOLUS 1 UNIT MISC MISCELLANE SCH ×4 (08:30→20:42)
[2021-12-04] MEDS: HEPARIN SODIUM,PORCINE/PF 5,000 UNIT/0.5 ML SYRINGE SQ SCH ×3 (08:30→23:51)
[2021-12-04] MEDS: CIPROFLOXACIN HCL 500 MG TAB PO SCH ×2 (09:25→20:39)
[2021-12-04] MEDS: metroNIDAZOLE 500 MG TAB PO SCH ×4 (12:02→22:06)
--- NOTE | 2021-12-04 15:56 | P.PN ---
Progress Note - Text Progress Note Date: 12/04/21 Hospital course: The patient is a 20-year-old male with a PMH of type I DM on insulin pump who p resents to the emergency room with complaints of nausea, vomiting, abdominal pain. The patient reports that his symptoms started earlier today, likely as a result of his insulin pump battery running out. The patient reports that he noticed the battery had run out after arrival at the emergency room, and that he had simply forgotten to charge it. Reports that this has happened in the past but that his symptoms were never severe. Reports feeling better at the time of interview. Reports mild diffuse abdominal pain with multiple episodes of nonbloody nonbilious emesis over the past 4-5 hours. Denies recent chest discomfort, shortness of breath, fever, chills, cough. Laboratory evaluation was remarkable for CO2 14, anion gap 20, and glucose 315. December 02: I assumed care of the patient from [facility] today. Patient is feeling better. Had spiked a fever. Had a slight cough. Come in. Feeling better. No congestion. No respiratory symptoms. No urinary symptoms. Patient's comfort also came in and patient be started on insulin pump. Patient smoked mother is also present. Patient was diagnosed to be diabetic at age of 3 and has adequate insulin pump last 8 years. Normally his Accu-Cheks runs in about 200s. Does follow with [employer] . I discussed at length with patient his mother and his girlfriend diabetic care and diet. We have no diabetic liaison in the hospital. Mother is a rather discontent about improper diabetic food being provided the hospital. Dietitian was consulted for the same. Infection workup has been ordered including checks to x-ray urine culture, blood culture. December 03: Patient been having diarrhea. C. diff was negative. No blood. No abdominal pain. Has had a sore throat. Slight redness in the pharynx. Being followed by ID. Discussed length with the patient the mother felt to be viral syndrome. Empirically been put on Cipro and Flagyl if bacterial diarrhea. Abnormal EKG hence cardiology was consulted. No further intervention per them. Diet changed to chopped. December 04: Dr. Ramses Morocho reviewed the echocardiogram. No further intervention or follow-up. Patient's diarrhea is improved. Fevers are greatly better. IV Unasyn added by ID. Oral intake improving. Hyperglycemia. Discussed with the patient to cut back on his basal insulin by 10%. Discussed with patient and his girlfriend's the bedside. No abdominal pain. No respiratory symptoms. Active Medications Acetaminophen (Acetaminophen Tab 325 Mg Tab) 650 mg PO Q6HR PRN PRN Reason: Mild Pain or Fever > 100.5 Last Admin: 12/03/21 15:08 Dose: 650 mg Ciprofloxacin (Ciprofloxacin Hcl 500 Mg Tab) 500 mg PO BID [facility]; Protocol Last Admin: 12/04/21 09:25 Dose: 500 mg Dextrose/Water (Dextrose 50% Syringe 50 Ml) 25 ml IVP PER PROTOCOL PRN; Protocol PRN Reason: Hypoglycemia Dextrose/Water (Dextrose 50% Syringe 50 Ml) 50 ml IVP PER PROTOCOL PRN; Protocol PRN Reason: Hypoglycemia Heparin Sodium (Porcine) (Heparin Sodium,Porcine/Pf 5,000 Unit/0.5 Ml Syringe) 5,000 unit SQ Q8HR [facility] Last Admin: 12/04/21 15:18 Dose: Not Given Ampicillin Sodium/Sulbactam (Sodium 3 gm/ Sodium Chloride) 100 mls @ 200 mls/hr IVPB Q6HR [facility]; Protocol Last Admin: 12/04/21 12:02 Dose: 200 mls/hr Insulin Aspart (Insulin Aspart (Novolog) 100 Unit/Ml Vial) 0 unit SQ Q6H [facility]; Protocol Last Admin: 12/04/21 15:18 Dose: Not Given Insulin Aspart (Insulin Aspart (Novolog) 100 Unit/Ml Vial) 0 unit SQ DAILY PRN PRN Reason: Insulin Pump Replacement Loperamide HCl (Loperamide 2 Mg Cap) 2 mg PO QID PRN PRN Reason: Diarrhea Last Admin: 12/03/21 11:02 Dose: 2 mg Metronidazole (Metronidazole 500 Mg Tab) 500 mg PO QID [facility]; Protocol Last Admin: 12/04/21 13:38 Dose: Not Given Miscellaneous Information (Insulin Pump Correction Bolus 1 Unit Misc) 0 unit MISCELLANE ACHS PRN; Protocol PRN Reason: Blood Sugar - High Miscellaneous Information (Insulin Pump Basal Rates 1 Each Misc) 1 each MISCELLANE Q6HR PRN; Protocol PRN Reason: Blood Sugar - High Miscellaneous Information (Insulin Pump Meal Bolus 1 Unit Misc) 0 unit MISCELLANE ACHS [facility]; Protocol Last Admin: 12/04/21 13:38 Dose: Not Given Naloxone HCl (Naloxone 0.4 Mg/Ml 1 Ml Vial) 0.2 mg IV Q2M PRN PRN Reason: Opioid Reversal Naproxen (Naproxen 250 Mg Tab) 250 mg PO Q8H PRN PRN Reason: Fever Last Admin: 12/03/21 21:19 Dose: 250 mg Ondansetron HCl (Ondansetron 4 Mg/2 Ml Vial) 4 mg IVP Q8HR PRN PRN Reason: Nausea And Vomiting Last Admin: 12/02/21 05:49 Dose: 4 mg Prochlorperazine Edisylate (Prochlorperazine Inj 10 Mg/2 Ml Vial) 5 mg IVP Q6HR PRN PRN Reason: Nausea And Vomiting On examination: VITAL SIGNS: 100.2, 71, 18, 129/60, 100% room air GENERAL APPEARANCE: Sitting up at the window, comfortable HEENT: Normal external appearance of nose and ear. Slight redness in the pharynx EYES: Pupils equal. Conjunctiva normal. NECK: JVD not raised. Mass not palpable. RESPIRATORY: Respiratory effort normal. Lungs clear to auscultation. CARDIOVASCULAR: First and second sounds normal. No edema. ABDOMEN: Soft. Liver and spleen not palpable. No tenderness. No mass palpable. PSYCHIATRY: Alert and oriented x3. Mood and affect normal. INVESTIGATIONS, reviewed in the clinical context: 2-D echocardiogram: Moderately increased septal wall thickness. She felt to 60%. WBC 4.2 hemoglobin 13.5 platelets 147 potassium 3.9 creatinine 0.83 C. diff: Negative UA: Negative for nitrate CMV/EBV: Negative Chest x-ray film: No infiltrates CT abdomen pelvis: Nonspecific mildly prominent lymph nodes in the right lower quadrant. Assessment and plan: -Sepsis, source unknown. Most likely viral. Patient is a slight slowed throat with some clinical findings of pharyngitis. Also has diarrhea.: Possible gastroenteritis. improvement IV fluids. IV Unasyn.. Oral Cipro and Flagyl. Chest x-ray / UA/ Blood culture. Computed tomography scan abdomen and pelvis /all negative. Negative for CMV in EBV. -Acute diarrhea, likely gastroenteritis bacterial: Better empirically been treated with Cipro and Flagyl -Mild Diabetic ketoacidosis: Improved Patient was being managed with long-acting insulin and short-acting insulin. We'll start the patient back on insulin pump. -Diabetes mellitus type 1, uncontrolled with hypo-and hyperglycemia 10% basal insulin to be cut back Per Dr. Ramses Morocho no further workup for echocardiogram. Appears to be normal as reviewed by him. Diarrhea resolved. Continue current antibiotics. Blood cultures negative.. Follow with ID
[2021-12-04 20:43] LABS: Glucose,Whole Blood 84 mg/dL (70-110)
[2021-12-05 02:11] LABS: Glucose,Whole Blood 74 mg/dL (70-110)
[2021-12-05] MEDS: INSULIN ASPART (NovoLOG) 100 UNIT/ML VIAL SQ SCH ×2 (04:03→08:01)
[2021-12-05] MEDS: LOPERAMIDE 2 MG CAP PO PRN ×2 (05:55→09:28)
[2021-12-05] MEDS: AMPICILLIN-SULBACTAM 3 GM in SODIUM CHLORIDE 0.9% 100 ML IVPB SCH ×2 (05:56→12:11)
[2021-12-05 06:05] LABS: Glucose,Whole Blood 110 mg/dL (70-110)
[2021-12-05 07:27] LABS: HCT 40.4 % (39.0-53.0); HGB 13.5 gm/dL (13.0-17.5); MCH 29.8 pg (25.0-35.0); MCHC 33.5 g/dL (31.0-37.0); MCV 89.1 fL (80.0-100.0); Mean Platelet Volume 8.5; Platelet Count 190 k/uL (150-450); RBC 4.53 m/uL (4.30-5.90); RDW 13.4 % (11.5-15.5); WBC 8.1 k/uL (4.0-11.0)
[2021-12-05] MEDS: HEPARIN SODIUM,PORCINE/PF 5,000 UNIT/0.5 ML SYRINGE SQ SCH (08:00)
[2021-12-05] MEDS: metroNIDAZOLE 500 MG TAB PO SCH ×2 (08:07→12:12)
[2021-12-05] MEDS: INSULIN PUMP MEAL BOLUS 1 UNIT MISC MISCELLANE SCH ×2 (09:07→12:14)
[2021-12-05] MEDS: CIPROFLOXACIN HCL 500 MG TAB PO SCH (09:09)
[2021-12-05 09:36] VITALS: BP 125/59; PULSE 67; TEMP 98.9
[2021-12-05 11:55] LABS: Eosinophils # (M) 0.08 k/uL (0-0.7); Lymphocytes # (M) 4.46 k/uL (1.0-4.8); Monocytes # (M) 0.89 k/uL (0-1.0); Neutrophils # (M) 2.75 k/uL (1.3-7.7); Neutrophils % (M) 34 %; Nucleated Red Blood Cells 0 /100 WBC (0-0); Total Cells Counted 200
[2021-12-05 11:56] LABS: RBC Morphology Normal; Reactive Lymphocytes Present
--- NOTE | 2021-12-05 18:30 | P.DS ---
Providers Date of admission: 12/01/21 04:57 Expected date of discharge: 12/05/21 Attending physician: Hong Junior Consults: 12/01/21 02:45 Consult Physician Urgent Consulting Provider: Criss Garcia Consult Reason/Comments: Uncontrolled type 1 diabetes mellitus, high anion gap, insulin pump problem Do you want consulting provider notified?: Yes, Notify in am 12/02/21 15:30 Consult Physician Routine Consulting Provider: Tiana Mitchell Consult Reason/Comments: fever of unknown origin Do you want consulting provider notified?: Yes, Notify in am 12/03/21 02:34 Consult Physician Routine Consulting Provider: Vonda Bourne Consult Reason/Comments: EKG CHANGES Do you want consulting provider notified?: Already Contacted Primary care physician: Shayne Shepherd MD Hospital Course: Hospital course: The patient is a 20-year-old male with a PMH of type I DM on insulin pump who presents to the emergency room with complaints of nausea, vomiting, abdominal pain. The patient reports that his symptoms started earlier today, likely as a result of his insulin pump battery running out. The patient reports that he noticed the battery had run out after arrival at the emergency room, and that he had simply forgotten to charge it. Reports that this has happened in the past but that his symptoms were never severe. Reports feeling better at the time of interview. Reports mild diffuse abdominal pain with multiple episodes of nonbloody nonbilious emesis over the past 4-5 hours. Denies recent chest discomfort, shortness of breath, fever, chills, cough. Laboratory evaluation was remarkable for CO2 14, anion gap 20, and glucose 315. December 02: I assumed care of the patient from [facility] today. Patient is feeling better. Had spiked a fever. Had a slight cough. Come in. Feeling better. No congestion. No respiratory symptoms. No urinary symptoms. Patient's comfort also came in and patient be started on insulin pump. Patient smoked mother is also present. Patient was diagnosed to be diabetic at age of 3 and has adequate insulin pump last 8 years. Normally his Accu-Cheks runs in about 200s. Does follow with tool supervisor . I discussed at length with patient his mother and his girlfriend diabetic care and diet. We have no diabetic liaison in the hospital. Mother is a rather discontent about improper diabetic food being provided the hospital. Dietitian was consulted for the same. Infection workup has been ordered including checks to x-ray urine culture, blood culture. December 03: Patient been having diarrhea. C. diff was negative. No blood. No abdominal pain. Has had a sore throat. Slight redness in the pharynx. Being followed by ID. Discussed length with the patient the mother felt to be viral syndrome. Empirically been put on Cipro and Flagyl if bacterial diarrhea. Abnormal EKG hence cardiology was consulted. No further intervention per them. Diet changed to chopped. December 04: Dr. Ramess Morocho reviewed the echocardiogram. No further intervention or follow-up. Patient's diarrhea is improved. Fevers are greatly better. IV Unasyn added by ID. Oral intake improving. Hyperglycemia. Discussed with the patient to cut back on his basal insulin by 10%. Discussed with patient and his girlfriend's the bedside. No abdominal pain. No respiratory symptoms. December 05: Patient feeling better. Diarrhea much better. Soft stool. Discussed with Dr. bunch from ID. 10 days of Augmentin. Possible colitis/enteritis. Discussed with the mother. Patient to follow-up with his tool supervisor. Discussion and discharge planning more than 35 minutes On examination: VITAL SIGNS: 98.9, 67, 18, 125/59, 100% room air GENERAL APPEARANCE: comfortable HEENT: Normal external appearance of nose and ear. Slight redness in the pharynx EYES: Pupils equal. Conjunctiva normal. NECK: JVD not raised. Mass not palpable. RESPIRATORY: Respiratory effort normal. Lungs clear to auscultation. CARDIOVASCULAR: First and second sounds normal. No edema. ABDOMEN: Soft. Liver and spleen not palpable. No tenderness. No mass palpable. PSYCHIATRY: Alert and oriented x3. Mood and affect normal. INVESTIGATIONS, reviewed in the clinical context: December 05: White count 8.1-year-old woman 13.5 pro-calcitonin 0.23 2-D echocardiogram: Moderately increased septal wall thickness. She felt to 60%. WBC 4.2 hemoglobin 13.5 platelets 147 potassium 3.9 creatinine 0.83 C. diff: Negative UA: Negative for nitrate CMV/EBV: Negative Chest x-ray film: No infiltrates CT abdomen pelvis: Nonspecific mildly prominent lymph nodes in the right lower quadrant. Assessment and plan: -Sepsis, possible colitis Complete 10 days of Augmentin. Chest x-ray / UA/ Blood culture. Computed tomography scan abdomen and pelvis /all negative. Negative for CMV in EBV. -Acute diarrhea, likely from colitis: Better -Mild Diabetic ketoacidosis: Improved Patient was being managed with long-acting insulin and short-acting insulin. We'll start the patient back on insulin pump. -Diabetes mellitus type 1, uncontrolled with hypo-and hyperglycemia 10% basal insulin to be cut back. Continue insulin pump. Disposition: Home Plan - Discharge Summary Discharge Rx Participant: No New Discharge Prescriptions: New Amoxic-Pot Clav 875-125Mg [Augmentin 875-125] 1 tab PO BID #14 tab Continue Levothyroxine Sodium 100 mcg PO DAILY Glucagon [Baqsimi] 1 dose NASAL DIRECTED PRN PRN Reason: low blood glucose Fenofibrate [Lofibra] 54 mg PO W/LUNCH Insulin Aspart [NovoLOG Flexpen] See Protocol SQ CONTINUOUS Discharge Medication List Fenofibrate [Lofibra] 54 mg PO W/LUNCH 12/01/21 [History] Glucagon [Baqsimi] 1 dose NASAL DIRECTED PRN 12/01/21 [History] Insulin Aspart [NovoLOG Flexpen] See Protocol SQ CONTINUOUS 12/01/21 [History] Levothyroxine Sodium 100 mcg PO DAILY 12/01/21 [History] Amoxic-Pot Clav 875-125Mg [Augmentin 875-125] 1 tab PO BID #14 tab 12/05/21 [Rx] Follow up Appointment(s)/Referral(s): Shayne Shepherd MD [Primary Care Provider] - 1 Week Salvador Hameed MD [REFERRING] - 1 Week Patient Instructions/Handouts: Sepsis (DC), Diabetic Hyperglycemia (DC), Return to Work Instructions (DC) Discharge Disposition: HOME SELF-CARE
== END 2021-12-05 13:50 | disposition home or self-care (01) | DRG 871 ==
LOC: EC 22:28 → 3SCARD 12-01 04:57
PROVIDERS: ADMIT Hospitalist; ATTEND Hospitalist
DX: A41.9 Sepsis, unspecified organism (principal); E10.10 Type 1 diabetes mellitus with ketoacidosis without coma; T85.694A Other mechanical complication of insulin pump, initial encounter; E10.649 Type 1 diabetes mellitus with hypoglycemia without coma; Z79.4 Long term (current) use of insulin; Z20.822 Contact with and (suspected) exposure to COVID-19; B34.9 Viral infection, unspecified; J02.8 Acute pharyngitis due to other specified organisms; K52.9 Noninfective gastroenteritis and colitis, unspecified; Z79.890 Hormone replacement therapy; Z79.899 Other long term (current) drug therapy; Z96.41 Presence of insulin pump (external) (internal); E03.9 Hypothyroidism, unspecified; Z87.74 Personal history of (corrected) congenital malformations of heart and circulatory system; T38.3X5A Adverse effect of insulin and oral hypoglycemic [antidiabetic] drugs, initial encounter; Z91.040 Latex allergy status
CPT/HCPCS: 36415; 71045; 71046; 74170; 80048; 80053; 81001; 81003; 82009; 82150; 82803; 83036; 83690; 83735; 84100; 84145; 84484; 85025; 85027; 86140; 86644; 86645; 86663; 86664; 86665; 87040; 87045; 87046; 87324; 87635; 93306; 96361; 96374; 96376; 99285

== ENCOUNTER 2023-04-22 21:36 | Emergency (ER) | payer BC ==
[2023-04-22] MEDS ORDERED: MAG HYDROX/AL HYDROX/SIMETH 30 ML, HYOSCYAMINE ELIXIR 10 ML, LIDOCAINE VISCOUS 2% 10 ML PO STA ×3 (22:12)
--- NOTE | 2023-04-22 22:16 | ED ---
General Adult HPI - General Chief complaint: ENT Stated complaint: Garcia stuck in throat Time Seen by Provider: 04/22/23 21:48 Source: patient Mode of arrival: ambulatory Limitations: no limitations - History of Present Illness Initial comments: Dictation was produced using mobileo dictation software. please excuse any grammatical, word or spelling errors. Chief Complaint: 22-year-old male presents for an body sensation in the throat History of Present Illness: 22-year-old male he was feeling fine today. He drank a chair containing cocktail. He states that the chair he with the stem was intact when he drank it. He felt like to garcia is stuck in his throat. Patient feels like there is pressure in the throat however is able to tolerate a solid and liquid intake. Patient denies having had any history of this in the past. The ROS documented in this emergency department record has been reviewed and confirmed by me. Those systems with pertinent positive or negative responses have been documented in the HPI. All other systems are other negative and/or noncontributory. - Related Data Home Medications Medication Instructions Recorded Confirmed Fenofibrate [Lofibra] 54 mg PO W/LUNCH 12/01/21 12/01/21 Glucagon [Baqsimi] 1 dose NASAL DIRECTED PRN 12/01/21 12/01/21 Insulin Aspart [NovoLOG Flexpen] See Protocol SQ CONTINUOUS 12/01/21 12/01/21 Levothyroxine Sodium 100 mcg PO DAILY 12/01/21 12/01/21 Previous Rx's Medication Instructions Recorded Amoxic-Pot Clav 875-125Mg 1 tab PO BID #14 tab 12/05/21 [Augmentin 875-125] Allergies Allergy/AdvReac Type Severity Reaction Status Date / Time latex Allergy Rash/Hives Verified 12/01/21 07:18 Review of Systems ROS Statement: Those systems with pertinent positive or pertinent negative responses have been documented in the HPI. ROS Other: All systems not noted in ROS Statement are negative. Past Medical History Past Medical History: Diabetes Mellitus, Thyroid Disorder Additional Past Medical History / Comment(s): IDDM type I/insulin pump, hypothyroid History of Any Multi-Drug Resistant Organisms: None Reported Past Surgical History: No Surgical Hx Reported Past Anesthesia/Blood Transfusion Reactions: Unable to Obtain Additional Past Anesthesia/Blood Transfusion Reaction / Comment(s): Pt has never had anesthesia Past Psychological History: Anxiety Smoking Status: Never smoker Past Alcohol Use History: Occasional Past Drug Use History: Marijuana - Past Family History Mother History Unknown: Yes Family Medical History: Cancer Additional Family Medical History / Comment(s): Pt is adopted Father History Unknown: Yes Additional Family Medical History / Comment(s): Pt is adopted. General Exam - General Exam Comments Initial Comments: General: Well-appearing, nontoxic, no acute distress. Head: Normocephalic, atraumatic Eyes: PERRLA, EOMI ENT: Airway patent, tolerating liquid intake, no abnormality seen in the posterior oropharynx Chest: Nonlabored breathing Skin: No visual rash, normal skin tone Neuro: Alert and oriented 3 Musculoskeletal: No gross abnormalities Limitations: no limitations Course Vital Signs 04/22/23 04/22/23 21:40 22:05 Temperature 98.1 F 98.6 F Pulse Rate 105 H 91 Respiratory 20 18 Rate Blood Pressure 143/96 143/79 O2 Sat by Pulse 98 98 Oximetry Medical Decision Making - Medical Decision Making Was pt. sent in by a medical professional or institution (Dr. PA, MACHINE TANK OPERATOR, urgent care, hospital, or long-term...) When possible be specific @ -No Did you speak to anyone other than the patient for history (EMS, parent, family, police, friend...)? What history was obtained from this source @ -No Did you review nursing and triage notes (agree or disagree)? Why? @ -I reviewed and agree with nursing and triage notes Were old charts reviewed (outside hosp., previous admission, EMS record, old EKG, old radiological studies, urgent care reports/EKG's, long-term records)? Report findings @ -No old charts were reviewed Differential Diagnosis (chest pain, altered mental status, abdominal pain women, abdominal pain men, vaginal bleeding, musculoskeletal, weakness, fever, dyspnea, syncope, headache, dizziness, GI bleed, back pain, seizure, CVA, palpatations, mental health)? @ -not applicable EKG interpreted by me (3pts min.). @ -None done X-rays interpreted by me (1pt min.). @ -None done CT interpreted by me (1pt min.). @ -None done U/S interpreted by me (1pt. min.). @ -None done What testing was considered but not performed or refused? (CT, X-rays, U/S, labs)? Why? @ -None What meds were considered but not given or refused? Why? @ -None Did you discuss the management of the patient with other professionals (professionals i.e. , PA, MACHINE TANK OPERATOR, lab, RT, psych nurse, social science teacher, metal annealer, teacher, horticultural technical officer, major case detective)? Give summary @ -No Was smoking cessation discussed for >3mins.? @ -No Was critical care preformed (if so, how long)? @ -No Were there social determinants of health that impacted care today? How? (Homelessness, low income, unemployed, alcoholism, drug addiction, transportation, low edu. Level, literacy, decrease access to med. care, correction, rehab)? @ -No Was there de-escalation of care discussed even if they declined (Discuss DNR or withdrawal of care, Hospice)? DNR status @ -No What co-morbidities impacted this encounter? (DM, HTN, Smoking, COPD, CAD, Cancer, CVA, ARF, Chemo, Hep., AIDS, mental health diagnosis, sleep apnea, morbid obesity)? @ -None Was patient admitted / discharged? Hospital course, mention meds given and route, prescriptions, significant lab abnormalities, going to OR and other pertinent info. @ -22-year-old male presents to the emergency room for foreign body sensation after ingesting a cocktail Garcia. Patient will. Bedside tolerating oral and solid intake patient's symptoms do not improve with GI cocktail. Patient told that likely he would benefit from a endoscopy. He understands that there could be a foreign body in there however there is no urgency given that he is not having any difficulties tolerating oral intake. Patient given outpatient referral to GI specialist. Undiagnosed new problem with uncertain prognosis? @ -No Drug Therapy requiring intensive monitoring for toxicity (Heparin, Nitro, Insulin, Cardizem)? @ -No Were any procedures done? @ -No Diagnosis/symptom? Acute, or Chronic, or Acute on Chronic? Uncomplicated (without systemic symptoms) or Complicated (systemic symptoms)? @ -Esophageal foreign body sensation Side effects of treatment? @ -No Exacerbation, Progression, or Severe Exacerbation? @ -No Poses a threat to life or bodily function? How? (Chest pain, [place], [place], pneumonia, PE, COPD, DKA, ARF, appy, cholecystitis, CVA, Diverticulitis, Homicidal, Suicidal, threat to staff... and all critical care pts) @ -No Disposition Clinical Impression: Esophageal abnormality Disposition: HOME SELF-CARE Condition: Fair Instructions (If sedation given, give patient instructions): Esophageal Foreign Body (ED) Is patient prescribed a controlled substance at d/c from ED?: No Referrals: Yumiko Traore MD [STAFF PHYSICIAN] - 1-2 days Time of Disposition: 23:02
[2023-04-22 22:27] VITALS: RESP 18
[2023-04-22 23:11] VITALS: BP 138/84; PULSE 94; TEMP 98.2
== END 2023-04-22 23:09 | disposition home or self-care (01) ==
LOC: EC 21:36
DX: R09.A2 Foreign body sensation, throat (principal); E11.9 Type 2 diabetes mellitus without complications; E03.9 Hypothyroidism, unspecified; F41.9 Anxiety disorder, unspecified; F12.90 Cannabis use, unspecified, uncomplicated; Z79.4 Long term (current) use of insulin; Z79.890 Hormone replacement therapy; Z79.899 Other long term (current) drug therapy; Z91.040 Latex allergy status
CPT/HCPCS: 99283

== ENCOUNTER → 2024-01-01 | Outpatient (CLI) | payer OTHER ==
--- NOTE | 2024-01-01 14:35 | XR ---
EXAMINATION TYPE: XR hand complete LT DATE OF EXAM: 01/01/2024 CLINICAL HISTORY: pain TECHNIQUE: Frontal, lateral and oblique images of the left hand are obtained. COMPARISON: None. FINDINGS: There is no acute fracture/dislocation evident. The joint spaces appear within normal limi ts. The overlying soft tissue appears unremarkable. IMPRESSION: There is no acute fracture or dislocation. ICD 10 NO FRACTURE, INITIAL EVALUATION [facility], , 01/01/2024 2:32 PM
== END | disposition home or self-care (01) ==
LOC: RADXRMAIN 14:15
PROVIDERS: ATTEND Emergency Medicine
DX: S67.02XA Crushing injury of left thumb, initial encounter (principal)